=== PATIENT | female | born 1965 | race Caucasian/White ===

== ENCOUNTER 2017-10-29 02:34 | Emergency (ER) | payer OTHER ==
--- NOTE | 2017-10-29 02:43 | EDM.PDOC ---
ED HPI GENERAL MEDICAL PROBLEM - General Chief Complaint: Fever Stated Complaint: FEVER Time Seen by Provider: 10/29/17 02:41 Source of Information: Reports: Patient History Limitations: Reports: No Limitations - History of Present Illness INITIAL COMMENTS - FREE TEXT/NARRATIVE: HISTORY AND PHYSICAL: History of present illness: []52-year-old female presenting to the emergency department with chief complaint of fever and chills 4 days. Patient states that approximally 4 days ago she began to have intermittent fevers and chills. She has been taking Tylenol to help with the fevers. States that today her temp got to 103.4 before she took Tylenol. After further discussion patient does report some dysuria prior to this Sunday as well as a history of pyelonephritis. She denies any abdominal pain, nausea, vomiting, diarrhrea, bloody stool, or dark tarry stools. She has had a nonproductive cough that started today. Otherwise patient is generally health and does not see a PCP here as she has recently moved here. Hx of allergy to penicillins and codeine On initial exam patient is diphoretic. She has mild right sided CVA tenderness on exam Review of systems: As per history of present illness and below otherwise all systems reviewed and negative. Past medical history: As per history of present illness and as reviewed below otherwise noncontributory. Surgical history: As per history of present illness and as reviewed below otherwise noncontributory. Social history: No reported history of drug or alcohol abuse. Family history: As per history of present illness and as reviewed below otherwise noncontributory. Physical exam: HEENT: Atraumatic, normocephalic, pupils reactive, negative for conjunctival pallor or scleral icterus, mucous membranes moist, throat clear, neck supple, nontender, trachea midline. Lungs: Clear to auscultation, breath sounds equal bilaterally, chest nontender. Heart: S1S2, regular, negative for clicks, rubs, or JVD. Abdomen: Soft, nondistended, nontender. Negative for masses or hepatosplenomegaly. Mild right costovertebral tenderness. Pelvis: Stable nontender. Genitourinary: Deferred. Rectal: Deferred. Extremities: Atraumatic, negative for cords or calf pain. Neurovascular unremarkable. Neuro: Awake, alert, oriented. Cranial nerves II through XII unremarkable. Cerebellum unremarkable. Motor and sensory unremarkable throughout. Exam nonfocal. Diagnostics: CBC, CMP, UA/UC, blood culture 2, chest x-ray Therapeutics: 2 L normal saline, Ciprofloxacin, potassium chloride Impression: Fever Pyelonephritis Hypokalemia Moderate dehydration Plan: CBC showed mild leukocytosis of 12,000 and urinalysis was positive for acute cystitis. However, secondary to the patient's symptoms I think this is more of a pyelonephritis. Patient improved dramatically after giving 2 L of normal saline as well as ciprofloxacin. Lactate was unremarkable. She was discharged in good condition with a prescription for ciprofloxacin and instructions to follow-up with primary care provider. Definitive disposition and diagnosis as appropriate pending reevaluation and review of above. Generalized Pain Score (Numeric/FACES): 5 - Related Data Allergies Allergy/AdvReac Type Severity Reaction Status Date / Time codeine Allergy Swelling Verified 10/29/17 02:46 Penicillins Allergy Other Verified 10/29/17 02:46 Home Meds: Home Meds . [No Known Home Meds] 10/29/17 [History] ED ROS GENERAL - Review of Systems Review Of Systems: ROS reveals no pertinent complaints other than HPI. ED EXAM, GENERAL - Physical Exam Exam: See Below Course - Vital Signs Last Recorded V/S: Last Vital Signs Temp 101.2 F H 10/29/17 02:49 Pulse 135 H 10/29/17 02:49 Resp 18 10/29/17 02:49 BP 170/106 H 10/29/17 02:49 Pulse Ox 95 10/29/17 02:49 - Orders/Labs/Meds Orders: Active Orders 24 hr Category Date Time Status CXR [Chest 2V] [CR] Stat Exams 10/29/17 03:06 Taken CULTURE BLOOD [BC] Stat Lab 10/29/17 02:50 Received CULTURE BLOOD [BC] Stat Lab 10/29/17 03:25 Received CULTURE URINE [RM] Stat Lab 10/29/17 03:26 Ordered UA W/MICROSCOPIC [URIN] Stat Lab 10/29/17 03:26 Ordered Ciprofloxacin in D5W [Cipro in D5W 400 MG/200 ML] 400 Med 10/29/17 03:45 Active mg Premix Bag 1 bag IV Q12H Sodium Chloride 0.9% [Normal Saline] 1,000 ml Med 10/29/17 03:10 Active IV STAT Blood Culture x2 Reflex Set [OM.PC] Stat Oth 10/29/17 03:05 Ordered Medication Orders Sodium Chloride (Normal Saline) 1,000 mls @ 999 mls/hr IV STAT ONE Stop: 10/29/17 04:10 Last Admin: 10/29/17 03:25 Dose: 999 mls/hr Ciprofloxacin/Dextrose 400 mg/ (Premix) 200 mls @ 200 mls/hr IV Q12H KALINA Last Admin: 10/29/17 03:46 Dose: 200 mls/hr Labs: Laboratory Tests 10/29/17 10/29/17 10/29/17 Range/Units 02:50 02:50 02:50 WBC 12.95 H (4.0-11.0) K/uL RBC 4.56 (4.30-5.90) M/uL Hgb 14.0 (12.0-16.0) g/dL Hct 40.3 (36.0-46.0) % MCV 88.4 (80.0-98.0) fL MCH 30.7 (27.0-32.0) pg MCHC 34.7 (31.0-37.0) g/dL RDW Std Deviation 41.5 (28.0-62.0) fl RDW Coeff of Korin 13 (11.0-15.0) % Plt Count 157 (150-400) K/uL MPV 9.30 (7.40-12.00) fL Neut % (Auto) 81.6 H (48.0-80.0) % Lymph % (Auto) 6.8 L (16.0-40.0) % Hardee % (Auto) 11.4 (0.0-15.0) % Eos % (Auto) 0.0 (0.0-7.0) % Baso % (Auto) 0.2 (0.0-1.5) % Neut # (Auto) 10.6 H (1.4-5.7) K/uL Lymph # (Auto) 0.9 (0.6-2.4) K/uL Hardee # (Auto) 1.5 H (0.0-0.8) K/uL Eos # (Auto) 0.0 (0.0-0.7) K/uL Baso # (Auto) 0.0 (0.0-0.1) K/uL Nucleated RBC % 0.0 /100WBC Nucleated RBCs # 0 K/uL Lactate 0.8 (0.20-2.00) mmol/L Sodium 133 L (136-145) mmol/L Potassium 3.0 L (3.5-5.1) mmol/L Chloride 97 L (98-107) mmol/L Carbon Dioxide 23.2 (21.0-32.0) mmol/L BUN 10 (7.0-18.0) mg/dL Creatinine 0.8 (0.6-1.0) mg/dL Est Cr Clr Drug Dosing 69.42 mL/min Estimated GFR (MDRD) > 60.0 ml/min Glucose 122 H (74-106) mg/dL Calcium 8.5 (8.5-10.1) mg/dL Total Bilirubin 0.8 (0.2-1.0) mg/dL AST 150 H (15-37) IU/L ALT 181 H (14-63) IU/L Alkaline Phosphatase 113 (46-116) U/L Total Protein 7.3 (6.4-8.2) g/dL Albumin 3.3 L (3.4-5.0) g/dL Globulin 4.0 H (2.0-3.5) g/dL Albumin/Globulin Ratio 0.8 L (1.3-2.8) Urine Color Urine Appearance Urine pH (5.0-8.0) Ur Specific Berry (1.001-1.035) Urine Protein (NEGATIVE) mg/dL Urine Glucose (UA) (NEGATIVE) mg/dL Urine Ketones (NEGATIVE) mg/dL Urine Occult Blood (NEGATIVE) Urine Nitrite (NEGATIVE) Urine Bilirubin (NEGATIVE) Urine Urobilinogen (<2.0) EU/dL Ur Leukocyte Esterase (NEGATIVE) Urine RBC (0-2/HPF) Urine WBC (0-5/HPF) Ur Epithelial Cells (NONE-FEW) Urine Bacteria (NEGATIVE) 10/29/17 Range/Units 03:26 WBC (4.0-11.0) K/uL RBC (4.30-5.90) M/uL Hgb (12.0-16.0) g/dL Hct (36.0-46.0) % MCV (80.0-98.0) fL MCH (27.0-32.0) pg MCHC (31.0-37.0) g/dL RDW Std Deviation (28.0-62.0) fl RDW Coeff of Korin (11.0-15.0) % Plt Count (150-400) K/uL MPV (7.40-12.00) fL Neut % (Auto) (48.0-80.0) % Lymph % (Auto) (16.0-40.0) % Hardee % (Auto) (0.0-15.0) % Eos % (Auto) (0.0-7.0) % Baso % (Auto) (0.0-1.5) % Neut # (Auto) (1.4-5.7) K/uL Lymph # (Auto) (0.6-2.4) K/uL Hardee # (Auto) (0.0-0.8) K/uL Eos # (Auto) (0.0-0.7) K/uL Baso # (Auto) (0.0-0.1) K/uL Nucleated RBC % /100WBC Nucleated RBCs # K/uL Lactate (0.20-2.00) mmol/L Sodium (136-145) mmol/L Potassium (3.5-5.1) mmol/L Chloride (98-107) mmol/L Carbon Dioxide (21.0-32.0) mmol/L BUN (7.0-18.0) mg/dL Creatinine (0.6-1.0) mg/dL Est Cr Clr Drug Dosing mL/min Estimated GFR (MDRD) ml/min Glucose (74-106) mg/dL Calcium (8.5-10.1) mg/dL Total Bilirubin (0.2-1.0) mg/dL AST (15-37) IU/L ALT (14-63) IU/L Alkaline Phosphatase (46-116) U/L Total Protein (6.4-8.2) g/dL Albumin (3.4-5.0) g/dL Globulin (2.0-3.5) g/dL Albumin/Globulin Ratio (1.3-2.8) Urine Color YELLOW Urine Appearance SLT CLOUDY Urine pH 6.0 (5.0-8.0) Ur Specific Berry <= 1.005 (1.001-1.035) Urine Protein TRACE (NEGATIVE) mg/dL Urine Glucose (UA) NEGATIVE (NEGATIVE) mg/dL Urine Ketones 15 H (NEGATIVE) mg/dL Urine Occult Blood MODERATE (NEGATIVE) Urine Nitrite NEGATIVE (NEGATIVE) Urine Bilirubin NEGATIVE (NEGATIVE) Urine Urobilinogen 1.0 (<2.0) EU/dL Ur Leukocyte Esterase SMALL (NEGATIVE) Urine RBC 0-4 (0-2/HPF) Urine WBC 10-15 (0-5/HPF) Ur Epithelial Cells FEW (NONE-FEW) Urine Bacteria FEW (NEGATIVE) Meds: Medications Generic Name Dose Route Start Last Admin Trade Name Freq PRN Reason Stop Dose Admin Sodium Chloride 1,000 mls @ 999 mls/hr 10/29/17 03:10 10/29/17 03:25 Normal Saline IV 10/29/17 04:10 999 mls/hr STAT ONE Administration Ciprofloxacin/Dextrose 400 mg/ 200 mls @ 200 mls/hr 10/29/17 03:45 10/29/17 03:46 Premix IV 200 mls/hr Q12H KALINA Administration Discontinued Medications Generic Name Dose Route Start Last Admin Trade Name Freq PRN Reason Stop Dose Admin Lorazepam 1 mg 10/29/17 04:01 10/29/17 04:06 Ativan IVPUSH 10/29/17 04:02 1 mg ONETIME ONE Administration Potassium Chloride 40 meq 10/29/17 04:03 Klor-Con M20 PO 10/29/17 04:04 ONETIME ONE Departure - Departure Time of Disposition: 04:10 Disposition: Home, Self-Care 01 Condition: Good Clinical Impression: Pyelonephritis, Hypokalemia, Moderate dehydration - Discharge Information Referrals: PCP,None [Primary Care Provider] - Forms: ED Department Discharge Additional Instructions: My general discharge The following information is given to patients seen in the emergency department who are being discharged to home. This information is to outline your options for follow-up care. We provide all patients seen in our emergency department with a follow-up referral. The need for follow-up, as well as the timing and circumstances, are variable depending upon the specifics of your emergency department visit. If you don't have a primary care physician on staff, we will provide you with a referral. We always advise you to contact your personal physician following an emergency department visit to inform them of the circumstance of the visit and for follow-up with them and/or the need for any referrals to a consulting specialist. The emergency department will also refer you to a specialist when appropriate. This referral assures that you have the opportunity for follow-up care with a specialist. All of these measure are taken in an effort to provide you with optimal care, which includes your follow-up. Under all circumstances we always encourage you to contact your private physician who remains a resource for coordinating your care. When calling for follow-up care, please make the office aware that this follow-up is from your recent emergency room visit. If for any reason you are refused follow-up, please contact the [facility] at and asked to speak to the emergency department charge nurse. [facility] [address] [place] [id number] [facility] [address] [place] [id number] Please call 1 of the above numbers and follow-up with a primary care provider Take antibiotics as prescribed and as we discussed. Return emergency department if any new or worsening symptoms. - My Orders Last 24 Hours: My Active Orders 10/29/17 02:50 CULTURE BLOOD [BC] Stat 10/29/17 03:05 Blood Culture x2 Reflex Set [OM.PC] Stat 10/29/17 03:06 CXR [Chest 2V] [CR] Stat 10/29/17 03:10 Sodium Chloride 0.9% [Normal Saline] 1,000 ml IV STAT 10/29/17 03:25 CULTURE BLOOD [BC] Stat 10/29/17 03:26 CULTURE URINE [RM] Stat UA W/MICROSCOPIC [URIN] Stat 10/29/17 03:45 Ciprofloxacin in D5W [Cipro in D5W 400 MG/200 ML] 400 mg Premix Bag 1 bag IV Q12H - Assessment/Plan Last 24 Hours: My Active Orders 10/29/17 02:50 CULTURE BLOOD [BC] Stat 10/29/17 03:05 Blood Culture x2 Reflex Set [OM.PC] Stat 10/29/17 03:06 CXR [Chest 2V] [CR] Stat 10/29/17 03:10 Sodium Chloride 0.9% [Normal Saline] 1,000 ml IV STAT 10/29/17 03:25 CULTURE BLOOD [BC] Stat 10/29/17 03:26 CULTURE URINE [RM] Stat UA W/MICROSCOPIC [URIN] Stat 10/29/17 03:45 Ciprofloxacin in D5W [Cipro in D5W 400 MG/200 ML] 400 mg Premix Bag 1 bag IV Q12H
[2017-10-29] MEDS ORDERED: Sodium Chloride 0.9% 1,000 ML IV ONE ×2 (03:10→04:14)
[2017-10-29 03:44] LABS: CHLORIDE,CL 97 mmol/L (98-107); SODIUM,NA 133 mmol/L (136-145)
[2017-10-29] MEDS ORDERED: Ciprofloxacin in D5W 400 MG in Premix Bag 1 BAG IV SCH ×2 (03:45)
[2017-10-29] MEDS ORDERED: LORazepam 2 MG/ML SDV IVPUSH ONE (04:01)
[2017-10-29] MEDS ORDERED: Potassium Chloride 20 MEQ Tab.ER PO ONE (04:03)
--- NOTE | 2017-10-29 14:29 | CR ---
EXAM DATE: 10/29/17 PATIENT'S AGE: 52 Patient: MERISSA MARS Facility: [place], [place] Site . Site : [id number] Study: XRay Chest [id number]/13/2018 3:44:38 AM Ordering Physician: Alberto Schwartz Final Report: Indication: Cough and fever Technique: Chest 2 views Comparison: None Findings/Impression: Cardiovascular and mediastinum: Heart size and vasculature are normal in caliber and appearance. Mediastinum is within normal limits. Lungs and pleural spaces: No consolidation or pleural effusions. A 6 millimeter left apical nodular opacity. Followup with CT. Bones and soft tissues: No significant findings. Dictated by Sajan De Paz MD @ 10/29/2017 3:51:04 AM Dictated by: Sajan De Paz MD @ 10/29/2017 03:51:13 (Electronic Signature) Report Signed by Proxy. MALLORIE
== END 2017-10-29 05:33 | disposition home or self-care (01) ==
LOC: MW.ED 02:34
DX: N12 Tubulo-interstitial nephritis, not specified as acute or chronic (principal); E87.6 Hypokalemia; E86.0 Dehydration; Z88.0 Allergy status to penicillin; Z88.5 Allergy status to narcotic agent
CPT/HCPCS: 36415; 71046; 80053; 81001; 83605; 85025; 87040; 87086; 87088; 87186; 96361; 96365; 96375; 99283; A9270; J0744; J2060; J7040